=== PATIENT | female | born 1965 | race Caucasian/White ===

== ENCOUNTER → 2021-03-27 13:44 | Outpatient (BNVA) | payer OTHER, SELFPAY | PROVIDERS: Visit Provider Internal Medicine | DX: M23.91 Unspecified internal derangement of right knee (principal) | CPT/HCPCS: 73564; 99203 ==

== ENCOUNTER → 2021-04-01 11:01 | Outpatient (BNVA) | payer OTHER, SELFPAY | PROVIDERS: Visit Provider Internal Medicine | DX: M23.91 Unspecified internal derangement of right knee (principal) | CPT/HCPCS: 99213 ==

== ENCOUNTER 2021-04-03 08:24 | Outpatient (REF) | payer OTHER, SELFPAY ==
--- NOTE | ~2021-04-03 | XR_ITS ---
EXAMINATION: XR PELVIS CLINICAL INFORMATION: Pain and unspecified hip COMPARISON: 12/26/2015 TECHNIQUE: AP view of the pelvis. FINDINGS: No displaced fracture. Status post right total hip arthroplasty. There are moderate degenerative changes with cartilage space narrowing and hypertrophic changes in the left hip. XR/XR pelvis 1-2V IMPRESSION: 1. Status post right hip total arthroplasty. 2. Moderate degenerative changes in the left hip.
--- NOTE | ~2021-04-03 | XR_ITS ---
EXAMINATION: XR KNEE AP STANDING CLINICAL INFORMATION: Pain and unspecified knee COMPARISON: Right knee 03/27/2021 TECHNIQUE: AP bilateral standing view of the knees was obtained. FINDINGS: No displaced fracture. The cartilage spaces in both knees are fairly well-preserved. Mild bony spurring is present. Soft tissues unremarkable. XR/XR knee standing BI IMPRESSION: No displaced fracture.
== END 2021-04-03 08:25 | disposition home or self-care (01) ==
LOC: HO.HOSX 08:24
PROVIDERS: Visit Provider Orthopaedic Surgery
DX: M16.12 Unilateral primary osteoarthritis, left hip (principal); M25.552 Pain in left hip; M25.561 Pain in right knee
CPT/HCPCS: 72170; 73565; 99202

== ENCOUNTER → 2021-04-08 10:57 | Outpatient (BNVA) | payer OTHER, SELFPAY | PROVIDERS: Visit Provider Internal Medicine | DX: M23.91 Unspecified internal derangement of right knee (principal) | CPT/HCPCS: 99213 ==

== ENCOUNTER → 2021-04-11 15:05 | Outpatient (BNVA) | payer OTHER, SELFPAY | PROVIDERS: Visit Provider Internal Medicine | DX: M23.91 Unspecified internal derangement of right knee (principal) | CPT/HCPCS: 99213 ==

== ENCOUNTER → 2021-04-21 10:53 | Outpatient (BNVA) | payer OTHER, SELFPAY | PROVIDERS: Visit Provider Internal Medicine | DX: M23.91 Unspecified internal derangement of right knee (principal) | CPT/HCPCS: 99213 ==

== ENCOUNTER 2021-05-01 10:17 | Outpatient (REF) | payer OTHER, SELFPAY ==
--- NOTE | ~2021-05-01 | MR_ITS ---
EXAMINATION: MR KNEE WITHOUT CONTRAST, RIGHT CLINICAL INFORMATION: Twisted knee, pain persists. COMPARISON: X-rays of the knees March 2021. TECHNIQUE: MRI of the knee without contrast was performed using routine sequences on a high-field scanner. FINDINGS: MENISCI: Medial Meniscus: There is an avulsive-type tear at the posterior root insertion. Lateral Meniscus: Intact. LIGAMENTS: Cruciate: Intact. Collateral: Intact. EXTENSOR MECHANISM: Intact. ARTICULAR CARTILAGE/BONE: Patellofemoral Compartment: Normal. Medial Compartment: Normal. Lateral Compartment: Normal. JOINT FLUID AND BURSAE: There is a mild joint effusion and trace Almodovar's cyst. ADDITIONAL FINDINGS: Mild edema in the subcutaneous soft tissues. MR/MR knee RT wo con IMPRESSION: Avulsive-type tear at the medial meniscus posterior root insertion.
== END 2021-05-01 10:18 | disposition home or self-care (01) ==
LOC: HO.MRI 10:17
PROVIDERS: Visit Provider Internal Medicine
DX: M25.561 Pain in right knee (principal)
CPT/HCPCS: 73721

== ENCOUNTER 2021-05-01 16:00 | Outpatient (RCR) | payer OTHER, SELFPAY ==
--- NOTE | 2021-04-02 16:55 | MHC.PT.EP ---
[facility] [place] [facility] [place] [facility] [place] [facility] [address] Yonatan Joyce [address] [phone] F: [phone] F: [phone] F: [phone] F: [phone] Physical Therapy Plan of Care Date of Evaluation: Date of Surgery: Diagnosis: R knee sprain Assessment: 55 y/o F referred from [facility] to PT with R knee sprain. Sustained injury while at work while walking with a child [id number] when the child fell and pulled causing her R knee to twist 03/27/21. Currently limited with walking > 10min, ascending/descending stairs, and job duties (squat, up/down from floor, lifting). She feels that her knee is improving but she has also been resting it. Examination shows decreased knee AROM, decreased B LE strength, increased TTP R inferior patella pole, impaired squat mechanics, and impaired gait pattern. Recommend PT 2x/week for 4 weeks to address impairments, implement HEP, and optimize functional mobility. Frequency and Duration: The patient will be seen 2x/week for 4 weeks Short Term Goals: 2 weeks 1. I with hEP 2. Improve knee flexion to 116 3. Demonstrate no quad lag with SLR Panel Monitor Goals: 4 weeks 1. I with HEP and self management of sx 2. Pt will be able to ascend/descend stairs in step through pattern and pain < 3/10 3. Pt will be able to ambulate >30min with pain < 3/10 Treatment Plan: Modalities to reduce pain, spasms and effusion. Manual therapy to restore motion and function. Therapeutic exercise to improve strength and flexibility. Neuromuscular re-education for posture and balance. Therapeutic activities to return to functional activities of daily living. Electronically signed by: Shayna Barriga PT Please sign and return to therapist. Thank you for your referral.
--- NOTE | 2021-05-23 09:47 | MHC.PT.DC ---
[facility] [place] Office [place] Office [place] Office [address] Yonatan Joyce [address] [phone] F: [phone] F: [phone] F: [phone] F: [phone] Physical Therapy Discharge Report Diagnosis: R knee sprain Date of Surgery: Date of Evaluation: 04/02/21 Date of Discharge: 05/23/21 Treatments to Date: 5 Cancellations to Date: 0 No Shows to Date: 0 Discharge Status: Independent with HEP Patient Elected to Stop Discharge Summary: *Per last treatment note: Pt reports although she like the taping and some of the exercises are good she does not feel therapy has been helping and requests to be DC'd to HEP. She did go for MRI of her knee today and has yet to have a f/u. Therapy will keep chart open x 2 weeks in case MD strongly suggests continuing PT. Pt is scheduled for L THR next month which is also a consideration. Non painful HEP reviewed and TET reapplied today. Electronically signed by: Shayna Barriga PT Please sign and return to therapist. Thank you for your referral.
== END 2021-05-23 09:47 | disposition home or self-care (01) ==
LOC: HO.PTCHIC 16:00
PROVIDERS: Visit Provider Internal Medicine
DX: S83.91XD Sprain of unspecified site of right knee, subsequent encounter (principal)
CPT/HCPCS: 97110; 97140; 97161

== ENCOUNTER → 2021-05-05 10:34 | Outpatient (BNVA) | payer OTHER, SELFPAY | PROVIDERS: Visit Provider Internal Medicine | DX: M23.91 Unspecified internal derangement of right knee (principal) | CPT/HCPCS: 99213 ==

== ENCOUNTER → 2021-05-08 09:32 | Outpatient (BNVA) | payer OTHER, SELFPAY | PROVIDERS: Visit Provider Physician Assistant | DX: S83.241A Other tear of medial meniscus, current injury, right knee, initial encounter (principal); M17.11 Unilateral primary osteoarthritis, right knee | CPT/HCPCS: 20610; 99202; J1040 ==

== ENCOUNTER → 2021-05-19 10:59 | Outpatient (BNVA) | payer OTHER, SELFPAY | PROVIDERS: Visit Provider Internal Medicine | DX: M23.206 Derangement of unspecified meniscus due to old tear or injury, right knee (principal) | CPT/HCPCS: 99213 ==

== ENCOUNTER → 2021-05-28 09:27 | Outpatient (BNVA) | payer OTHER, SELFPAY | PROVIDERS: PCP Nurse Practitioner Family; Visit Provider Orthopaedic Surgery ==

== ENCOUNTER → 2021-06-26 13:26 | Outpatient (BNVA) | payer OTHER, SELFPAY | PROVIDERS: Visit Provider Physician Assistant ==

== ENCOUNTER 2021-07-02 09:59 | Inpatient (IN) | payer OTHER, SELFPAY ==
--- NOTE | 2021-06-26 10:33 | HO.ANESPROP2 ---
Documented by User: Selin Li NP 06/30/21 08:09 HPI - Anesthesia Eval Consult details Narrative: 55yo F for Left Hip Total Replacement PCP cleared. BP up at PAT. Was within acceptable range at PCP clearance appointment. Will check at home and bring data DOS. PMFSH Active Problems Active Problems: All Active Problems (Updated 06/18/21 @ 10:47 by Kelsi Rodriguez RN) Internal derangement of right knee (Acute ~03/27/21) Tear of medial meniscus of right knee (Acute) Patellofemoral arthritis of right knee (Acute) Past Medical History Medical History Anemia Anxiety disorder Arthritis COVID-19 vaccine series completed History of torn meniscus of right knee HTN (hypertension) Family History Family history of problems with anesthesia: No Surgical History Surgical History History of bladder suspension procedure History of endometrial ablation History of tonsillectomy History of total right hip arthroplasty Hx of section Hx of cholecystectomy History of Problems with Anesthesia: No Social History Social History Are you a primary career and guidance counselor to a significant other at home: No Do you presently have visiting nurse or other home services: No Alcohol intake: never Patient Tobacco Use Status: Former Tobacco user Quit Date: ~ 30 yrs ago Tobacco use type: Cigarette Second Hand Smoke Exposure: No Use of substances other than those prescribed or required for medical reasons: No Have you been hit, kicked, punched, or otherwise hurt by someone within the past year? If so, by whom?: No Are you DNR?: No Advance Directives: No Advance Directives Information Provided: Yes Advance Directives on File: No Recently lost weight without trying: No Eating poorly because of decreased appetite: No Nutrition Risks: No Nutritional Risk Patient : No Current occupational status: employed Current occupation: teacher, right handed Meds Allergies Allergy/AdvReac Type Severity Reaction Status Date / Time No Known Allergies Allergy Verified 06/26/21 14:00 [No Known Allergies*] Home Medications Medication Instructions Recorded Confirmed Last Taken Type fluoxetine 40 mg capsule 40 mg PO DAILY 04/03/21 06/18/21 07/02/21 08:45 History acetaminophen 650 mg 1,300 mg PO Q8H 06/26/21 07/02/21 07/02/21 08:45 History tablet,extended release (Tylenol 650 mg Arthritis Pain) Exam Exam Date and Time: June 26, 2021 1033 Height,Weight and Vital Signs: Vital Signs Pulse Rate 83 06/26/21 14:05 Blood Pressure 170/102 H 06/26/21 14:05 Pulse Oximetry 97 06/26/21 14:05 Pulse Rate 83 06/26/21 14:05 Blood Pressure 170/102 H 06/26/21 14:05 Pulse Oximetry 97 06/26/21 14:05 Pertinent Lab Results Pertinent Lab Results: CBC and BMP wnl at outside facility Lab Results 06/26/21 06/26/21 Range/Units 15:02 Unknown Nasal Screen MRSA (PCR) NEGATIVE (Negative) Nasal S. aureus Screen POSITIVE A (Negative) Nasal MRSA/S.aureus Interp SEE NOTE Blood Type AB Negative Antibody Screen NEGATIVE Narrative Narrative: EKG 06/2021 NSR, LAD, Incomplete RBBB, poor R wave progression, No evidence of ischemia Airway Mallampati Class: I TM Dist: >3cm Neck ROM: Full Loose/Missing/Broken Teeth: Yes (Molar RU broken) Heart: RRR Lungs: CTAB Assessment and Plan Final Anesthetic Review Family History of Problems with Anesthesia: No History of Problems with Anesthesia: No Documented by User: Nichole Luu MD 07/02/21 10:35 [facility] Past Medical History Medical History Anemia Anxiety disorder Arthritis COVID-19 vaccine series completed History of torn meniscus of right knee HTN (hypertension) Surgical History Surgical History History of bladder suspension procedure History of endometrial ablation History of tonsillectomy History of total right hip arthroplasty Hx of section Hx of cholecystectomy Social History Social History Are you a primary career and guidance counselor to a significant other at home: No Do you presently have visiting nurse or other home services: No Alcohol intake: never Patient Tobacco Use Status: Former Tobacco user Quit Date: ~ 30 yrs ago Tobacco use type: Cigarette Second Hand Smoke Exposure: No Use of substances other than those prescribed or required for medical reasons: No Have you been hit, kicked, punched, or otherwise hurt by someone within the past year? If so, by whom?: No Are you DNR?: No Advance Directives: No Advance Directives Information Provided: Yes Advance Directives on File: No Recently lost weight without trying: No Eating poorly because of decreased appetite: No Nutrition Risks: No Nutritional Risk Patient : No Current occupational status: employed Current occupation: teacher, right handed Meds Allergies Allergy/AdvReac Type Severity Reaction Status Date / Time No Known Allergies Allergy Verified 06/26/21 14:00 [No Known Allergies*] Home Medications Medication Instructions Recorded Confirmed Last Taken Type fluoxetine 40 mg capsule 40 mg PO DAILY 04/03/21 06/18/21 07/02/21 08:45 History acetaminophen 650 mg 1,300 mg PO Q8H 06/26/21 07/02/21 07/02/21 08:45 History tablet,extended release (Tylenol 650 mg Arthritis Pain) Assessment and Plan Assessment Anesthesia Assessment: Anesthesia Plan Discussed and Chart Reviewed Final Anesthetic Review NPO: Yes ASA Class: III Final Preanesthetic Review: Meds/Allgs Chart Reviewed, Consent Obtained/Reviewed and Anes Risks/Benef Reviewed Patient Risk: Intermediate Procedure Risk: Intermediate Anesthetic Plan Anesthetic Plan: GA Disposition: Standard PACU
[2021-06-26 14:05] VITALS: BP 170/102; PULSE 83; O2SAT 97; BMI 41.8
[2021-06-27 09:03] LABS: MRSA Nasal PCR NEGATIVE (Negative); SA Nasal PCR POSITIVE (Negative)
[2021-07-02] VITALS (16 sets, daily range): BP systolic 120–180; BP diastolic 62–97; PULSE 79–93; RESP 8–18; TEMP 36.3–36.9; O2SAT 91–100
--- NOTE | ~2021-07-02 | XR_ITS ---
EXAMINATION: XR PELVIS CLINICAL INFORMATION: Post left hip replacement COMPARISON: Previous x-ray March 2021 TECHNIQUE: AP view of the pelvis. FINDINGS: There is a new left hip replacement in satisfactory position. No fracture or dislocation is seen. There is a right hip replacement in satisfactory position. There are postoperative changes to the soft tissues. XR/XR pelvis 1-2V IMPRESSION: Satisfactory appearance of left hip replacement.
[2021-07-02 10:08] LABS: COVID-19 Test Negative (Negative)
[2021-07-02] MEDS: oxyCODONE HCl ER 10 MG TAB.ER.12H PO ×2 (10:12→20:36)
[2021-07-02] MEDS: Lactated Ringers 1,000 ML 100 ML IVCONT (10:25)
--- NOTE | 2021-07-02 10:48 | MHC.SHP ---
Pre-Procedural Eval Section A Date of Service: 07/02/21 The patient is an INPATIENT: No Changes since office visit: Yes Patient answered all questions; No Cold of Flu in the past 2 weeks, No New Medical Problems and No Changes in Medication The History & Physical has been completed within 30 days and I have reviewed it.: Yes Section B Chief Complaint: Osteoarthritis Left Hip Allergies: Allergies Allergy/AdvReac Type Severity Reaction Status Date / Time No Known Allergies Allergy Verified 06/26/21 14:00 [No Known Allergies*] Plan I have reviewed the history and physical and performed a pertinent physical examination on my patient. No changes have occurred unless specified.
--- NOTE | 2021-07-02 13:26 | P.BOP_ITS ---
Brief Operative Note Date of Service: 07/02/21 Pre-op diagnosis: left hip OA Post-op diagnosis: same Procedure: Left RODO Implants: [place] trident2 # 50; accolad 2 #3 132deg with +4 32 ceramic and 10 deg post lip liner Surgeon: Randal Clark MD Anesthesia: GETA and local Was an Vice President Of Business Development used for this Procedure?: Yes Vice President Of Business Development: Alyssa Muñoz Estimated blood loss (mL): 200 IV fluids (mL): 1,100 Pathology: other Condition: stable Disposition: PACU
[2021-07-02] MEDS: oxyCODONE HCl Immed Release 5 MG TABLET PO ×3 (14:20→23:36)
[2021-07-02] MEDS: fentaNYL citrate/PF 100 MCG/2 ML VIAL 25 MCG IVPUSH (14:28)
[2021-07-02] MEDS: Dextrose 5 % and 0.45 % NaCl 1,000 ML 80 ML IVCONT (18:29)
[2021-07-02] MEDS: 0.9 % Sodium Chloride Flush 3 ML SYRINGE IVFLUSH (18:29)
--- NOTE | 2021-07-02 19:07 | PC.NURSE ---
Patient spontaneously voided 350mL into bedside commode at 1730
[2021-07-02] MEDS: Docusate Sodium 100 MG CAPSULE PO (20:36)
[2021-07-02] MEDS: Celecoxib 200 MG CAPSULE PO (20:36)
[2021-07-02] MEDS: HYDROmorphone HCl 0.5 MG/0.5 ML SYRINGE 0.25 MG IVPUSH (22:09)
[2021-07-02] MEDS: Acetaminophen 325 MG TABLET 650 MG PO (22:09)
[2021-07-03] VITALS (9 sets, daily range): BP systolic 111–155; BP diastolic 52–81; PULSE 95–111; RESP 16–18; TEMP 36.1–36.9; O2SAT 91–98
[2021-07-03] MEDS: HYDROmorphone HCl 0.5 MG/0.5 ML SYRINGE 0.25 MG IVPUSH (01:59)
[2021-07-03] MEDS: oxyCODONE HCl Immed Release 5 MG TABLET PO ×4 (03:31→18:34)
[2021-07-03] MEDS: Acetaminophen 325 MG TABLET 650 MG PO ×3 (04:03→21:26)
[2021-07-03] MEDS: Dextrose 5 % and 0.45 % NaCl 1,000 ML 80 ML IVCONT (05:59)
[2021-07-03 06:11] LABS: MANUAL DIFF FLAG NO
[2021-07-03 06:25] LABS: Basophils Percent Auto 0.1 % (0-2); Hematocrit 27.4 % (37-47); Hemoglobin 9.1 g/dl (12.0-16.0); Imm Gran Abs Auto 0.03 X10*3/uL (0.00-0.03); Imm Gran Pct Auto 0.3 % (0.0-0.4); Lymphocytes Absolute Auto 1.2 X10*3/uL (1.2-4.9); Lymphocytes Percent Auto 12.2 % (20-40); Mean Corpuscular HGB Conc 33.2 g/dl (31.0-35.0); Mean Corpuscular Hemoglobin 27.7 pg (27.0-33.0); Mean Corpuscular Volume 83.5 fL (80-98); Mean Platelet Volume 9.7 fL (9.4-12.3); Monocytes Absolute Auto 1.1 X10*3/uL (0.1-1.2); Monocytes Percent Auto 11.2 % (2-11); Neutrophils Absolute Auto 7.7 X10*3/uL (2.0-8.3); Neutrophils Percent Auto 76.2 % (45-73); Platelet Count 225 X10*3/uL (160-400); Red Blood Count 3.28 X10*6/uL (4.20-5.50); Red Cell Distribution Width 13.6 % (11.0-16.0); White Blood Count 10.1 X10*3/uL (4.8-10.8)
[2021-07-03 06:41] LABS: Anion Gap 10 (12-20); Blood Urea Nitrogen 8 mg/dL (9-16); Calcium 7.9 mg/dL (8.4-10.2); Carbon Dioxide 28 mmol/L (22-29); Chloride 100 mmol/L (96-108); Creatinine Clr Calc Pharmacy 119.2; Estimated Glomerular Filt Rate > 60; Glucose Fasting 162 mg/dL (60-99); Potassium 4.1 mmol/L (3.3-5.1); Sodium 134 mmol/L (135-145)
--- NOTE | 2021-07-03 07:49 | PM.PNORT ---
Subjective Subjective Date of Service: 07/03/21 Interval history: POD1 s/p left RODO with Dr. Clark. Patient is resting comfortably in bed. No overnight events. Pain is well managed. No additional complaints. Physical Exam Vital Signs: Vital Signs: Last Vital Signs Temp 98.5 F 07/03/21 07:36 Pulse 111 H 07/03/21 07:36 Resp 18 07/03/21 03:11 BP 131/65 07/03/21 07:36 Pulse Ox 98 07/03/21 07:36 Body Mass Index 41.8 Const: General: cooperative, healthy appearing and no acute distress Resp: Effort & Inspection: normal respiratory effort and able to speak in complete sentences Cardio: Rate: regular rate Peripheral pulses: Peripheral pulses 2+ throughout GI: Palpation (GI): Soft to palpation Skin: Lesions: no lesions Rashes: no rashes Extrem: Other: left hip aquacel is clean, dry, and intact. No ecchymosis, redness, or drainage. NVI. Procedures Date of Service Date of Service: 07/03/21 Progress Note: A&P Assessment and plan (1) Status post total hip replacement, left: Status: Acute Assessment and Plan: Continue pain mgmnt Begin ASA for dvt ppx begin PT for LTHA Dispo planning-Pending PT eval, pain mgmnt Fall Risk Details Current Medications: Current Medications Generic Name Dose Route Start Last Admin Trade Name Freq PRN Reason Stop Dose Admin Acetaminophen 650 mg 07/02/21 17:14 07/03/21 04:03 Acetaminophen 325 Mg Tablet PO 650 mg Q6H PRN Administration Pain, Mild (Pain Scale 1-3) Celecoxib 200 mg 07/02/21 21:00 07/02/21 20:36 Celecoxib 200 Mg Capsule PO 200 mg BID BETINA Administration Docusate Sodium 100 mg 07/02/21 21:00 07/02/21 20:36 Docusate Sodium 100 Mg Capsule PO 100 mg BID BETINA Administration Hydromorphone HCl 0.25 mg 07/02/21 17:14 07/03/21 01:59 Hydromorphone Hcl 0.5 Mg/0.5 Ml Syringe IVPUSH 0.25 mg Q4H PRN Administration Pain, Severe (Pain Scale 7-10) Protocol Dextrose/Sodium Chloride 1,000 mls @ 80 mls/hr 07/02/21 17:14 07/03/21 05:59 D51/2ns IVCONT 80 mls/hr .[id number] BETINA Administration Oxycodone HCl 5 mg 07/02/21 17:14 07/03/21 03:31 Oxycodone Hcl Immed Release 5 Mg Tablet PO 5 mg Q4H PRN Administration Pain, Moderate (Pain Scale 4-6 Oxycodone HCl 10 mg 07/02/21 21:00 07/02/21 20:36 Oxycodone Hcl Er 10 Mg Tab.Er.12h PO 10 mg BID BETINA Administration Sodium Chloride 3 ml 07/02/21 17:14 07/03/21 07:12 0.9 % Sodium Chloride Flush 3 Ml Syringe IVFLUSH Not Given QSHIFT BETINA Time Spent With Patient Time: Total time spent is greater than 50% in coordination of care (as documented) at patient's floor/unit and/or counseling patient: Time with patient: less than 15 minutes Quality Stroke Does the patient have a stroke diagnosis?: No VTE Prior VTE?: No VTE Risk Level:: Surgical - high VTE Device Contraindication: N/A - Device Ordered VTE Drug Contraindication: N/A - Med Ordered
--- NOTE | 2021-07-03 08:48 | HO.POSTANES ---
Post Anesthesia Evaluation Post Anesthesia Evaluation Vital Signs: Vital Signs Temp Pulse Resp BP Pulse Ox 07/03/21 07:48 111 H 131/65 98 07/03/21 07:36 98.5 F 111 H 131/65 98 07/03/21 03:11 98.4 F 100 18 155/67 H 96 07/03/21 00:00 98.2 F 95 17 153/81 H 98 Anesthesia: General Endotracheal-GETA Mental Status: Awake Pain Control: Satisfactory Nausea/Vomiting: Mild Hydration: Adequate Anesthesia-Related Issues: No Anes. Related Issues
[2021-07-03] MEDS: Celecoxib 200 MG CAPSULE PO ×2 (08:57→21:27)
[2021-07-03] MEDS: Docusate Sodium 100 MG CAPSULE PO ×2 (08:57→21:26)
[2021-07-03] MEDS: oxyCODONE HCl ER 10 MG TAB.ER.12H PO ×2 (08:57→21:27)
--- NOTE | 2021-07-03 09:13 | P.CONHOSP_ITS ---
History of Present Illness Data of Consult Service Date: 07/03/21 Primary Care Provider: Belinda Physician HPI Reason for consult: medical managment 55 year old female with history of anxiety, hypertriglyeridemia, Major depression, morbid obesity, OA of hip s/p right replacement by Dr. Clark 5 years ago and now has undergone left hip replacment and is POD 1, she relates that she seem more uncomfortable this this time than 5 years ago, she received narcan post op d/t respiratory suppresion and this seem transient. No other omplaint at this time. Review of Systems Review of Systems: Gen: no fever Resp: no sob, no cough CV: no chest, no PEREZ, no leg edema GI: No n/v, no abd pain Neuro: No confusion MSK: pain in the operated hip Yes all other systems are reviewed and are negative [facility] Medical History Anemia Anxiety disorder Arthritis COVID-19 vaccine series completed History of torn meniscus of right knee HTN (hypertension) Hypertriglyceridemia Major depression Morbid obesity Surgical History History of bladder suspension procedure History of endometrial ablation History of tonsillectomy History of total right hip arthroplasty Hx of section Hx of cholecystectomy Social History Are you a primary child care development specialist to a significant other at home: No Do you presently have visiting nurse or other home services: No Alcohol intake: never Patient Tobacco Use Status: Former Tobacco user Quit Date: ~ 30 yrs ago Tobacco use type: Cigarette Second Hand Smoke Exposure: No Use of substances other than those prescribed or required for medical reasons: No Currently Displaying Signs/Symptoms of Drug Intoxication Withdrawal: No Have you been hit, kicked, punched, or otherwise hurt by someone within the past year? If so, by whom?: No Are you DNR?: No Advance Directives: No Advance Directives Information Provided: Yes Advance Directives on File: No Do you have thoughts of harming others: None Do you have a plan to hurt others: No Plan Recently lost weight without trying: No Eating poorly because of decreased appetite: No Nutrition Risks: No Nutritional Risk Patient : No Current occupational status: employed Current occupation: teacher, right handed Meds Allergies Allergy/AdvReac Type Severity Reaction Status Date / Time No Known Allergies Allergy Verified 06/26/21 14:00 [No Known Allergies*] Active Medications: Current Medications Generic Name Dose Route Start Last Admin Trade Name Freq PRN Reason Stop Dose Admin Acetaminophen 650 mg 07/02/21 17:14 07/03/21 04:03 Acetaminophen 325 Mg Tablet PO 650 mg Q6H PRN Administration Pain, Mild (Pain Scale 1-3) Celecoxib 200 mg 07/02/21 21:00 07/03/21 08:57 Celecoxib 200 Mg Capsule PO 200 mg BID BETINA Administration Docusate Sodium 100 mg 07/02/21 21:00 07/03/21 08:57 Docusate Sodium 100 Mg Capsule PO 100 mg BID BETINA Administration Hydromorphone HCl 0.25 mg 07/02/21 17:14 07/03/21 01:59 Hydromorphone Hcl 0.5 Mg/0.5 Ml Syringe IVPUSH 0.25 mg Q4H PRN Administration Pain, Severe (Pain Scale 7-10) Protocol Dextrose/Sodium Chloride 1,000 mls @ 80 mls/hr 07/02/21 17:14 07/03/21 05:59 D51/2ns IVCONT 80 mls/hr .[id number] BETINA Administration Oxycodone HCl 5 mg 07/02/21 17:14 07/03/21 08:57 Oxycodone Hcl Immed Release 5 Mg Tablet PO 5 mg Q4H PRN Administration Pain, Moderate (Pain Scale 4-6 Oxycodone HCl 10 mg 07/02/21 21:00 07/03/21 08:57 Oxycodone Hcl Er 10 Mg Tab.Er.12h PO 10 mg BID BETINA Administration Sodium Chloride 3 ml 07/02/21 17:14 07/03/21 07:12 0.9 % Sodium Chloride Flush 3 Ml Syringe IVFLUSH Not Given QSHIFT [facility] Home Medications Medication Instructions Recorded Confirmed Last Taken Type fluoxetine 40 mg capsule 40 mg PO DAILY 04/03/21 06/18/21 07/02/21 08:45 History acetaminophen 650 mg 1,300 mg PO Q8H 06/26/21 07/02/21 07/02/21 08:45 History tablet,extended release (Tylenol 650 mg Arthritis Pain) Physical Exam Vital Signs and Narrative: Vital Signs: Last Vital Signs Temp 98.5 F 07/03/21 07:36 Pulse 111 H 07/03/21 07:48 Resp 18 07/03/21 03:11 BP 131/65 07/03/21 07:48 Pulse Ox 98 07/03/21 07:48 Body Mass Index 41.8 Gen: alert, no acute distress HEENT: NCAT, EOMI, PERRL, conj noninj, sclerae anicteric, Neck: supple, no LAD Chest: CTAB no w/r/r Heart: RRR, no m/r/g Abd: soft, nt, NABS, no HM/SM or mass. Ext: NT, no edema, Skin: no rash Neuro: A&O. No focal findings.?gait antalgic to affected side ? Psych: Affect full and appropriate. Results Labs CBC and Chem 7: 07/03/21 05:26 07/03/21 05:26 Labs: Laboratory Results - last 24 hr 07/02/21 07/03/21 07/03/21 09:40 05:26 05:26 MCV 83.5 MCH 27.7 MCHC 33.2 RDW 13.6 Plt Count 225 MPV 9.7 Immature Gran % (Auto) 0.3 Neut % (Auto) 76.2 H Lymph % (Auto) 12.2 L [place] % (Auto) 11.2 H Eos % (Auto) 0.0 Baso % (Auto) 0.1 Lymph # (Auto) 1.2 [place] # (Auto) 1.1 Eos # (Auto) 0.0 Baso # (Auto) 0.0 Abs Immat Gran (auto) 0.03 Absolute Neuts (auto) 7.7 Absolute Nucleated RBC 0.000 Nucleated RBC % (auto) 0.0 Anion Gap 10 L Estim Creat Clear Calc 119.2 Estimated GFR > 60 Fasting Glucose 162 H Calcium 7.9 L COVID-19 (ISIAH) Negative COVID-19 Clin Com See Note Imaging Radiologist's Impressions: Impressions Pelvis X-Ray 07/02/21 09:59 IMPRESSION: Satisfactory appearance of left hip replacement. Assessment and Plan (1) Anemia: Status: Acute 55/F with OA s/p left RODO 1. s/p RODO, managment per ortho 2.?Morbid obesity?actively working on weight loss w some difficulty w this, planning on starting weight watchers again, will have limitations in light of surgery ? 3.?Anxiety?Mood stable on prozac 4.?Major depression, recurrent?Mood stable on prozac 5.?Hypertriglyceridemia, monitor diet 6. Anemia, Hgb 9, 12 on June 16. ? ?
[2021-07-03] MEDS: Aspirin 325 MG TABLET PO ×2 (11:47→23:50)
--- NOTE | 2021-07-03 13:08 | MHC.CM.PN ---
EMR REVIEWED, PT ADMITTED S/P LEFT TOTAL HIP, CM MET W/PT WHO IS A&OX4, REPORTS SHE LIVES W/ AND CHILDREN, PT HAS WALKER AT HOME AND NO HOME SERVICES, PT WOULD LIKE TO D/C HOME W/SERVICES RATHER THAN STR, REFERRAL TO [facility] WILL BE MADE W/REQUEST FOR [facility] D/T HAVING HER IN PAST AND HER BEING VERY COMFORTABLE W/PT'S DOGS, PT AWARE WE CANNOT GUARANTEE HOWEVER WILL REQUEST, PT CONFIRMED HER PCP IS CHANDLER IZQUIERDO. PT COMPLETED HCP W/PT WHO NAMED HER DELVIS DEMARCO [phone] HER AGENT, NO ALTERNATE CHOSEN AT THIS TIME. D/C PLAN: HOME W/PT, FAMILY FOR TRANSPORT
[2021-07-04] VITALS (7 sets, daily range): BP systolic 109–136; BP diastolic 51–68; PULSE 90–106; RESP 15–20; TEMP 36.1–36.9; O2SAT 94–97
[2021-07-04] MEDS: Dextrose 5 % and 0.45 % NaCl 1,000 ML 800 ML IVCONT (02:54)
[2021-07-04] MEDS: HYDROmorphone HCl 0.5 MG/0.5 ML SYRINGE 0.25 MG IVPUSH (03:50)
[2021-07-04 06:16] LABS: MANUAL DIFF FLAG NO
[2021-07-04 06:35] LABS: Basophils Percent Auto 0.1 % (0-2); Eosinophils Absolute Auto 0.1 X10*3/uL (0.0-0.4); Eosinophils Percent Auto 0.8 % (0-4); Hematocrit 25.1 % (37-47); Hemoglobin 8.1 g/dl (12.0-16.0); Imm Gran Abs Auto 0.04 X10*3/uL (0.00-0.03); Imm Gran Pct Auto 0.5 % (0.0-0.4); Lymphocytes Absolute Auto 1.4 X10*3/uL (1.2-4.9); Lymphocytes Percent Auto 15.7 % (20-40); Mean Corpuscular HGB Conc 32.3 g/dl (31.0-35.0); Mean Corpuscular Volume 83.7 fL (80-98); Mean Platelet Volume 9.4 fL (9.4-12.3); Monocytes Absolute Auto 0.8 X10*3/uL (0.1-1.2); Monocytes Percent Auto 9.1 % (2-11); Neutrophils Absolute Auto 6.5 X10*3/uL (2.0-8.3); Neutrophils Percent Auto 73.8 % (45-73); Platelet Count 172 X10*3/uL (160-400); Red Cell Distribution Width 13.4 % (11.0-16.0); White Blood Count 8.8 X10*3/uL (4.8-10.8)
[2021-07-04] MEDS: oxyCODONE HCl ER 10 MG TAB.ER.12H PO (08:02)
[2021-07-04] MEDS: oxyCODONE HCl Immed Release 5 MG TABLET PO ×2 (08:02→12:15)
[2021-07-04] MEDS: Docusate Sodium 100 MG CAPSULE PO (08:03)
[2021-07-04] MEDS: Celecoxib 200 MG CAPSULE PO (08:03)
[2021-07-04] MEDS: Acetaminophen 325 MG TABLET 650 MG PO ×2 (08:03→12:15)
[2021-07-04] MEDS: Aspirin 325 MG TABLET PO (08:04)
--- NOTE | 2021-07-04 08:26 | P.PNOP_ITS ---
Subjective Subjective Date of Service: 07/04/21 Interval history: POD2 left total hip arthroplasty with Dr. Clark. Patient is resting in the chair. Pain is managed. Feeling overall general malaise. Physical Exam Vital Signs: Vital Signs: Last Vital Signs Temp 98.5 F 07/04/21 07:58 Pulse 106 H 07/04/21 07:58 Resp 19 07/04/21 07:58 BP 136/65 07/04/21 07:58 Pulse Ox 97 07/04/21 07:58 Body Mass Index 41.8 Const: General: cooperative, healthy appearing and no acute distress Resp: Effort & Inspection: normal respiratory effort and able to speak in complete sentences Cardio: Rate: regular rate Peripheral pulses: Peripheral pulses 2+ th roughout GI: Palpation (GI): Soft to palpation Skin: Lesions: no lesions Rashes: no rashes Extrem: Other: Left hip no ecchymosis, redness or drainage. Aquacel dressing is clean dry and intact. Patient is able to stand. Sensation intact. Pedal pulse intact. Procedures Date of Service Date of Service: 07/04/21 Progress Note: A&P Assessment and plan (1) Status post total hip replacement, left: Status: Acute Assessment and Plan: Continue pain mgmnt Continue ASA for dvt ppx Contniue PT for RTHA H/H: 7.1.- 1 unit PRBC's ordered Dispo planning-PTl, pain mgmnt, transfusion Fall Risk Details Current Medications: Current Medications Generic Name Dose Route Start Last Admin Trade Name Freq PRN Reason Stop Dose Admin Acetaminophen 650 mg 07/02/21 17:14 07/04/21 08:03 Acetaminophen 325 Mg Tablet PO 650 mg Q6H PRN Administration Pain, Mild (Pain Scale 1-3) Aspirin 325 mg 07/03/21 11:00 07/04/21 08:04 Aspirin 325 Mg Tablet PO 325 mg BID@1100,2300 BETINA Administration Celecoxib 200 mg 07/02/21 21:00 07/04/21 08:03 Celecoxib 200 Mg Capsule PO 200 mg BID BETINA Administration Docusate Sodium 100 mg 07/02/21 21:00 07/04/21 08:03 Docusate Sodium 100 Mg Capsule PO 100 mg BID BETINA Administration Hydromorphone HCl 0.25 mg 07/02/21 17:14 07/04/21 03:50 Hydromorphone Hcl 0.5 Mg/0.5 Ml Syringe IVPUSH 0.25 mg Q4H PRN Administration Pain, Severe (Pain Scale 7-10) Protocol Dextrose/Sodium Chloride 1,000 mls @ 80 mls/hr 07/02/21 17:14 07/04/21 02:54 D51/2ns IVCONT 800 mls/hr .[id number] BETINA Administration Oxycodone HCl 5 mg 07/02/21 17:14 07/04/21 08:02 Oxycodone Hcl Immed Release 5 Mg Tablet PO 5 mg Q4H PRN Administration Pain, Moderate (Pain Scale 4-6 Oxycodone HCl 10 mg 07/02/21 21:00 07/04/21 08:02 Oxycodone Hcl Er 10 Mg Tab.Er.12h PO 10 mg BID BETINA Administration Sodium Chloride 3 ml 07/02/21 17:14 07/04/21 08:02 0.9 % Sodium Chloride Flush 3 Ml Syringe IVFLUSH Not Given QSHIFT BETINA Time Spent With Patient Time: Total time spent is greater than 50% in coordination of care (as documented) at patient's floor/unit and/or counseling patient: Time with patient: less than 15 minutes Quality Stroke Does the patient have a stroke diagnosis?: No VTE Prior VTE?: No VTE Risk Level:: Surgical - high VTE Device Contraindication: N/A - Device Ordered VTE Drug Contraindication: N/A - Med Ordered
--- NOTE | 2021-07-04 09:45 | P.DS_ITS ---
DS: Providers Provider Date of Service: 07/04/21 Date of admission: 07/02/21 09:59 Primary care physician: None Physician Consults: 07/02/21 17:14 Consult to Medicine Routine Consulting Provider: Hospitalist Reason for consultation: medical management routine DS: Diagnosis Discharge Diagnosis (1) Status post total hip replacement, left: Status: Acute DS: Medications Discharge Medications Home Medications: Home Medications Medication Instructions Recorded Confirmed fluoxetine 40 mg capsule 40 mg PO DAILY 04/03/21 06/18/21 Previous Rx's Medication Instructions Recorded acetaminophen 325 mg tablet 650 mg PO Q6H PRN 30 Days #240 tab 07/03/21 aspirin 325 mg tablet 325 mg PO BID@1100,2300 42 Days 07/03/21 #84 tab celecoxib 200 mg capsule 200 mg PO BID 30 Days #60 cap 07/03/21 docusate sodium 100 mg capsule 100 mg PO BID 30 Days #60 cap 07/03/21 oxycodone 5 mg tablet 5 mg PO Q4H PRN 7 Days #42 tab 07/03/21 DS: Summary Hospital Course Hospital Course: Patient presented to the office with ongoing chronic left hip pain. She tried and failed all conservative treatment and continued to have difficulties with ambulation and ADLs. Therefore, she has consented to move forward with a left total hip arthroplasty. The patient underwent a successful left total hip arthroplasty, they were transferred to PACU and then to the floor to recover. During their stay, their vitals were stable, afebrile at 97.6. H/H 7.1/25.1 therefore the patient was transfused with 1 unit of PRBC's on POD2. POD 1 they were started on Aspirin 325mg po bid for DVT ppx, they also received Physical Therapy services twice a day. Prior to discharge, their dressing was changed, incision clean dry and intact, new Aquacel dressing applied and the plan was to be discharged home with VNA services. Time Spent with Patient Time attestation: Total time spent providing and/or coordinating discharge services: Discharge coordination time: Less than 30 minutes Quality: Stroke Does the patient have a stroke diagnosis?: No Physical Exam Vital Signs: Vital Signs: Last Vital Signs Temp 98.5 F 07/04/21 07:58 Pulse 106 H 07/04/21 09:06 Resp 19 07/04/21 07:58 BP 136/65 07/04/21 09:06 Pulse Ox 97 07/04/21 09:06 Body Mass Index 41.8 Const: General: cooperative, healthy appearing and no acute distress Resp: Effort & Inspection: normal respiratory effort and able to speak in complete sentences Cardio: Rate: regular rate Peripheral pulses: Peripheral pulses 2+ throughout GI: Palpation (GI): Soft to palpation Skin: Lesions: no lesions Rashes: no rashes Extrem: Other: Left hip no ecchymosis, redness or edema. Aquacel dressing is clean dry and intact. Patient is able to stand under her own power. Sensation is intact. Pedal pulse intact. DS: Data Data Completed and Pending Pending studies at discharge: Pending at discharge 07/02/21 12:41 Surgical [PTH] Routine Labs on day of discharge: Laboratory Results - last 24 hr 06/26/21 07/04/21 07/04/21 15:02 05:48 08:17 WBC 8.8 RBC 3.00 L Hgb 8.1 L Hct 25.1 L MCV 83.7 MCH 27.0 MCHC 32.3 RDW 13.4 Plt Count 172 MPV 9.4 Immature Gran % (Auto) 0.5 H Neut % (Auto) 73.8 H Lymph % (Auto) 15.7 L Morrison % (Auto) 9.1 Eos % (Auto) 0.8 Baso % (Auto) 0.1 Lymph # (Auto) 1.4 Morrison # (Auto) 0.8 Eos # (Auto) 0.1 Baso # (Auto) 0.0 Abs Immat Gran (auto) 0.04 H Absolute Neuts (auto) 6.5 Absolute Nucleated RBC 0.000 Nucleated RBC % (auto) 0.0 Blood Type AB Negative Antibody Screen NEGATIVE Crossmatch See Detail See Detail Discharge Plan Discharge Patient Disposition: Home Health Service Discharge Diagnosis: s/p left RODO Referrals: Gloria Hoyt PA-C [Physician Visitor Services Specialist] - 2 Weeks (07/17/21 at 1:30pm) Discharge Medications: New acetaminophen 325 mg Tablet 650 mg PO Q6H PRN (Reason: Pain, Mild (Pain Scale 1-3)) 30 Days Qty: 240 RF: 0 celecoxib 200 mg Capsule 200 mg PO BID 30 Days Qty: 60 RF: 0 aspirin 325 mg Tablet 325 mg PO BID@1100,2300 42 Days Qty: 84 RF: 0 docusate sodium 100 mg Capsule 100 mg PO BID 30 Days Qty: 60 RF: 0 oxycodone 5 mg Tablet 5 mg PO Q4H PRN (Reason: Pain, Moderate (Pain Scale 4-6) 7 Days Qty: 42 RF: 0 Continued fluoxetine 40 mg capsule 40 mg PO DAILY RF: 0 Discontinued acetaminophen [Tylenol Arthritis Pain] 650 mg Tablet Extended Release 1,300 mg PO Q8H RF: 0 Discharge Orders: Discharge Order (Routine); Ordered 07/04/21 Ordered By: Alyssa Muñoz Diet: regular diet Activity on Discharge: Use cane or walker Stand Alone Forms: Patient Portal Discharge page Care Plan Goals: restore fxn to left hip Health Concerns: none Plan of Treatment: Physical Therapy for total hip arthroplasty: posterior precautions, gait training, ROM, strength Limit stair climbing No showering, no tub bath-keep dressing clean, dry and intact No driving x6 weeks 6Continue ASA twice a day x 4 weeks Follow up with [facility] in 2 weeks Assessment: stable for d/c
--- NOTE | 2021-07-04 10:15 | MHC.CM.PN ---
PT WILL D/C HOME AFTER BLOOD TRANSFUSION W/[facility] FOR HOME PT, PT'S FOR TRANSPORT.
--- NOTE | 2021-07-04 13:22 | W.MHC.F2F ---
Service Date Service Date: 07/04/21 Reasons for Services Reason for physical therapy: home safety and mobility, therapeutic exercises, restore joint function, gait/transfer training and ADL training Reason for occupational therapy: home safety and mobility, therapeutic exercises, restore joint function, gait/transfer training and ADL training Homebound: Leaving the home is medically contraindicated at this time without the asist of a device and/or another person due th the listed conditions above and below. Reason homebound: unsteady gait / fall risk, leg weakness, pain with ambulation, pain with transfers, poor balance / fall risk and unable to drive Homebound supporting statement: Pt. is considered homebound due to recent surgery. Unable to drive, poor balance, poor gait mechanics. Certification: Based on the above findings, I certify that this patient is confined to the home and needs intermittent nursing home care, physical therapy and/or speech therapy, or continues to need occupational therapy. The patient is under my care, and I have initiated the establishment of the plan of care. The patient will be followed by a physician who will periodically review the plan of care.
--- NOTE | 2021-08-13 10:14 | W.PM.OPN ---
Operative Note Operative Note Date of Service: 07/02/21 Narrative: Pre-op diagnosis: left hip OA Post-op diagnosis: same Procedure: Left RODO Implants: Powersite trident2 # 50; accolade 2 #3 132deg with +4 32 ceramic and 10 deg post lip liner Surgeon: Randal Clark MD Anesthesia: GETA and local Was an Director Of Marketing Communications used for this Procedure?: Yes Director Of Marketing Communications: Alyssa Muñoz Estimated blood loss (mL): 200 IV fluids (mL): 1,100 Pathology: other Condition: stable Disposition: PACU Procedure in detail: Patient was brought into the operating room and placed in the right lateral decubitus position. All bony prominences were well padded and the limb was prepped and draped in standard sterile fashion. Time-out was called to identify proper site procedure proper surgeon IV antibiotics and 1 g of transaxemic acid were administered. I began by making a curvilinear incision over the posterolateral aspect of the greater trochanter. Dissection was taken down to the tensor fascia which was incised in line with the incision and a Charnley retractor was placed. Cautery was used to maintain hemostasis. The hip was internally rotated and the external rotators were identified. The vessels were cauterized and a full-thickness capsular/external rotator layer was developed starting just proximal to the piriformis. This layer was tagged and a dull Hohmann retractor was placed underneath the neck in the hip was dislocated. The head was eburnated.. A neck cut was made 1 cm proximal to the lesser trochanter and the head and neck were removed and measured on the back table. I then placed my anterior-posterior acetabular retractors and performed a labrectomy. The cup was also arthritic. I then started with a4 4 and sequentially reamed up to a size 52 and impacted a 52 at approximately 45 degrees of inclination and 25 degrees of version. I then placed a 10 deg lipped liner and turned my attention to the femur. I identified the piriformis insertion and used this as a starting point for my jaswant cutter. The medius tendon was protected with a Hibs retractor. I then used a Charnley awl to identify the canal and a curved curette to remove the lateral bone. I irrigated copiously. I then sequentially broached in the patient's natural version to a size #2 and placed my trial implants. Using a trail head I took the hip through range of motion. I was very satisfied with the stability and length. Therefore I removed all instrumentation and copiously irrigated. I placed my final femoral implant and again took the hip through range of motion with a variety of head leangthe. I selected a +4 and this was impacted in place. I was satisfied with the stability and length. I then irrigated for 3 minutes with iodine and placed 1 g of local tranaxemic acid. I then performed a capsular closure with 2.0 fiberwire, Morelia's fascia with 0 Vicryl, subcuticular with 2-0 Vicryl and the skin with geri. Patient was placed into a sterile dressing. Radiographs were obtained at the completion of the case and I was satisfied with the component position. Patient was extubated brought to the recovery room in stable condition.
== END 2021-07-04 12:40 | disposition home health service (06) | DRG 324 ==
LOC: HO.SSSA 10:01 → HO.S3 15:29
PROVIDERS: Physician Assistant; Admitting Provider Orthopaedic Surgery; PCP Nurse Practitioner Family; Visit Provider Orthopaedic Surgery
PROC: 0SRB0JA Replacement of Left Hip Joint with Synthetic Substitute, Uncemented, Open Approach (ICD-10-PCS; CPT 27130; principal; 2021-07-02 11:10)
DX: M16.12 Unilateral primary osteoarthritis, left hip (principal); E78.1 Pure hyperglyceridemia; F32.9 Major depressive disorder, single episode, unspecified; I10 Essential (primary) hypertension; Z87.891 Personal history of nicotine dependence; Z20.822 Contact with and (suspected) exposure to COVID-19; Z79.899 Other long term (current) drug therapy
CPT/HCPCS: 36415; 72170; 80048; 85025; 86850; 86900; 86901; 86923; 87635; 87640; 87641; 88304; 88311; 94660; 97110; 97116; 97162; 97166; 97535; C1776; J0131; J0690; J1170; J2370; J2405; J3010; P9016

== ENCOUNTER → 2021-07-17 13:15 | Outpatient (BNVA) | payer OTHER, SELFPAY | PROVIDERS: PCP Nurse Practitioner Family; Visit Provider Physician Assistant ==

== ENCOUNTER → 2021-08-14 10:43 | Outpatient (BNVA) | payer OTHER, SELFPAY | PROVIDERS: Visit Provider Orthopaedic Surgery ==

== ENCOUNTER 2021-09-25 09:02 | Outpatient (REF) | payer OTHER, SELFPAY ==
--- NOTE | ~2021-09-25 | XR_ITS ---
EXAMINATION: XR PELVIS XR HIP, LEFT CLINICAL INFORMATION: Left hip pain. COMPARISON: Radiograph pelvis 07/02/2021, 04/03/2021 TECHNIQUE: 2 AP views of the pelvis are obtained along with crosstable lateral view left hip. FINDINGS: There are bilateral hip replacements. The hardware is intact. There is no fracture or dislocation or destructive process. No osteolysis. Again, there are degenerative changes lower lumbar spine with disc narrowing and vertebral spurring. The SI joints and pubis are unremarkable. There is whiskering from the lateral iliac crests again seen and spurring from the bilateral greater trochanters. XR/XR hip LT 1V IMPRESSION: 1. Bilateral hip replacements. Hardware intact. No fracture, dislocation, or osteolysis. 2. Degenerative changes lumbar spine.
--- NOTE | ~2021-09-25 | XR_ITS ---
EXAMINATION: XR PELVIS XR HIP, LEFT CLINICAL INFORMATION: Left hip pain. COMPARISON: Radiograph pelvis 07/02/2021, 04/03/2021 TECHNIQUE: 2 AP views of the pelvis are obtained along with crosstable lateral view left hip. FINDINGS: There are bilateral hip replacements. The hardware is intact. There is no fracture or dislocation or destructive process. No osteolysis. Again, there are degenerative changes lower lumbar spine with disc narrowing and vertebral spurring. The SI joints and pubis are unremarkable. There is whiskering from the lateral iliac crests again seen and spurring from the bilateral greater trochanters. XR/XR pelvis 1-2V IMPRESSION: 1. Bilateral hip replacements. Hardware intact. No fracture, dislocation, or osteolysis. 2. Degenerative changes lumbar spine.
== END 2021-09-25 09:03 | disposition home or self-care (01) ==
LOC: HO.HOSX 09:02
PROVIDERS: Visit Provider Orthopaedic Surgery
DX: Z47.1 Aftercare following joint replacement surgery (principal); Z96.642 Presence of left artificial hip joint
CPT/HCPCS: 72170; 73501

== ENCOUNTER → 2021-10-09 12:28 | Outpatient (BNVA) | payer OTHER, SELFPAY | PROVIDERS: Visit Provider Orthopaedic Surgery ==

== ENCOUNTER → 2022-03-06 11:39 | Outpatient (BNVA) | payer OTHER, SELFPAY | PROVIDERS: PCP Internal Medicine; Visit Provider Physician Assistant | DX: S83.241D Other tear of medial meniscus, current injury, right knee, subsequent encounter (principal) | CPT/HCPCS: 99212 ==

== ENCOUNTER 2022-03-11 06:00 | Day surgery (SDC) | payer OTHER, SELFPAY ==
--- NOTE | 2022-03-05 13:59 | HO.ANESPROP2 ---
Documented by User: Selin Li NP 03/10/22 10:04 HPI - Anesthesia Eval Consult details Narrative: 56yo F for Knee Arthroscopy s/p total hip 06/2021 - during Tele-PAT, pt states she required narcan 3 times post-op, but after review of records no doses of narcan admin'd. She required bipap in PACU, but was transferred [facility] Active Problems Active Problems: All Active Problems (Updated 03/05/22 @ 09:23 by Kelsi Rodriguez RN) Internal derangement of right knee (Acute ~03/27/21) Tear of medial meniscus of right knee (Acute) Patellofemoral arthritis of right knee (Acute) Osteoarthritis of left hip (Acute) Status post total hip replacement, left (Acute) Past Medical History Medical History Anemia Anxiety disorder Arthritis COVID-19 vaccine series completed History of torn meniscus of right knee HTN (hypertension) Hypertriglyceridemia Major depression Morbid obesity Family History Family history of problems with anesthesia: No Surgical History Surgical History History of bladder suspension procedure History of endometrial ablation History of tonsillectomy History of total left hip arthroplasty History of total right hip arthroplasty Hx of section Hx of cholecystectomy History of Problems with Anesthesia: No Social History Social History Are you a primary inpatient care manager rn to a significant other at home: No Do you presently have visiting nurse or other home services: No Alcohol intake: never Patient Tobacco Use Status: Former Tobacco user Quit Date: ~ 30 yrs ago Tobacco use type: Cigarette Second Hand Smoke Exposure: No Current occupational status: employed Current occupation: teacher, right handed Meds Allergies Allergy/AdvReac Type Severity Reaction Status Date / Time No Known Allergies Allergy Verified 03/06/22 11:51 [No Known Allergies*] Home Medications Medication Instructions Recorded Confirmed Last Taken Type fluoxetine 40 mg capsule 40 mg PO DAILY 04/03/21 03/05/22 07/02/21 08:45 History Exam Exam Date and Time: March 05, 2022 1359 Assessment and Plan Assessment Anesthesia Assessment: Chart Reviewed Final Anesthetic Review Family History of Problems with Anesthesia: No History of Problems with Anesthesia: No Documented by User: Andry De Jesus MD 03/11/22 17:25 HPI - Anesthesia Eval Consult details Narrative: 56yo F for Knee Arthroscopy right s/p total hip 06/2021 - during Tele-PAT, pt states she required narcan 3 times post-op . She required bipap in PACU, but was transferred [facility] Past Medical History Medical History Anemia Anxiety disorder Arthritis COVID-19 vaccine series completed History of torn meniscus of right knee HTN (hypertension) Hypertriglyceridemia Major depression Morbid obesity Functional capacity: independent ambulation Surgical History Surgical History History of bladder suspension procedure History of endometrial ablation History of tonsillectomy History of total left hip arthroplasty History of total right hip arthroplasty Hx of section Hx of cholecystectomy Social History Social History Are you a primary inpatient care manager rn to a significant other at home: No Do you presently have visiting nurse or other home services: No Alcohol intake: never Patient Tobacco Use Status: Former Tobacco user Quit Date: ~ 30 yrs ago Tobacco use type: Cigarette Second Hand Smoke Exposure: No Current occupational status: employed Current occupation: teacher, right handed Meds Allergies Allergy/AdvReac Type Severity Reaction Status Date / Time No Known Allergies Allergy Verified 03/06/22 11:51 [No Known Allergies*] Home Medications Medication Instructions Recorded Confirmed Last Taken Type fluoxetine 40 mg capsule 40 mg PO DAILY 04/03/21 03/05/22 07/02/21 08:45 History Exam Airway Mallampati Class: II TM Dist: >3cm Neck ROM: Full Loose/Missing/Broken Teeth: Yes (Chipped ) Heart: S1, S2 Lungs: b/l breath sounds Assessment and Plan Assessment Anesthesia Assessment: Anesthesia Plan Discussed Final Anesthetic Review NPO: Yes ASA Class: III Final Preanesthetic Review: Meds/Allgs Chart Reviewed, Consent Obtained/Reviewed and Anes Risks/Benef Reviewed Patient Risk: Intermediate Procedure Risk: Intermediate Anesthetic Plan Anesthetic Plan: GA Disposition: Standard PACU
[2022-03-11] VITALS (8 sets, daily range): BP systolic 163–178; BP diastolic 68–92; PULSE 54–78; RESP 12–18; TEMP 36–36.4; O2SAT 95–100; BMI 41.4
[2022-03-11] MEDS: Lactated Ringers 1,000 ML 100 ML IVCONT (06:15)
--- NOTE | 2022-03-11 08:33 | PM.OP ---
Brief Operative Note Date of Service: 03/11/22 Pre-op diagnosis: right knee MMT Post-op diagnosis: other (1) MMT 2) PF OA 3) Medial plica) Procedure: Right knee partial medial meniscectomy and chondroplasty with medial plica resection Surgeon: Randal Clark MD Anesthesia: GETA and local Was an Erosion Control Specialist used for this Procedure?: No Estimated blood loss (mL): 5 Tourniquet time (min): 24 IV fluids (mL): 500 Pathology: other Condition: stable Disposition: PACU
--- NOTE | 2022-03-11 08:36 | W.PM.OPN ---
Operative Note Operative Note Date of Service: 03/11/22 Narrative: Pre-op diagnosis: right knee MMT Post-op diagnosis: other (1) MMT 2) PF OA 3) Medial plica) Procedure: Right knee partial medial meniscectomy and chondroplasty with medial plica resection Surgeon: Randal Clark MD Anesthesia: GETA and local Was an Regulatory Affairs Specialist used for this Procedure?: No Estimated blood loss (mL): 5 Tourniquet time (min): 24 IV fluids (mL): 500 Pathology: other Condition: stable Disposition: PACU Procedure in detail: The patient was brought to the operating room placed supine on the arthroscopic table and prepped and draped in standard sterile fashion. A time-out was called to identify proper site proper procedure proper surgeon and IV antibiotics per weight were administered. I began by exsanguinating the limb and insufflating tourniquet to 300 mm Hg. Then made a standard anterolateral stab incision. The knee was insufflated with water and 30 degree arthroscope was placed. There was grade 2/3 changes of the distal pole of the patella and fissuring with G 2 changes of the trochlea. There was an abrading medial plica. I descended into the medial compartment where I made my medial portal under direct visualization. There was no obvious meniscal tearing. There was a partial tear at the root but the root was intact and stable upon probing. I debrided the torn portions but root repair was not indicated. There were G 1 fribrillations of the medial compartment cartilage surfaces. I debrided the loose chondral fragments of the medial compartment and the PF joint. I debrided the medial plica. I then removed all instrumentation and closed the portals with skin glue. 25 mL of 2% Marcaine with epinephrine was injected into the joint and the surrounding soft tissues. Patient was then placed in sterile dressing extubated brought recovery room stable condition. There were no known complications.
[2022-03-11] MEDS: fentaNYL citrate/PF 100 MCG/2 ML VIAL 25 MCG IVPUSH (08:50)
== END 2022-03-11 10:15 | disposition home or self-care (01) ==
PROVIDERS: PCP Internal Medicine; Visit Provider Orthopaedic Surgery
PROC: (CPT 29870; principal; 2022-03-11 07:30)
DX: M22.2X1 Patellofemoral disorders, right knee (principal); M67.51 Plica syndrome, right knee; I10 Essential (primary) hypertension; D64.9 Anemia, unspecified; F32.9 Major depressive disorder, single episode, unspecified; Z87.891 Personal history of nicotine dependence; E66.01 Morbid (severe) obesity due to excess calories; Z68.41 Body mass index [BMI] 40.0-44.9, adult
CPT/HCPCS: 29877; J0131; J0171; J0690; J1100; J2250; J2405; J3010

== ENCOUNTER → 2022-03-16 10:47 | Outpatient (BNVA) | payer OTHER, SELFPAY | PROVIDERS: PCP Internal Medicine; Visit Provider Physician Assistant | DX: S83.241D Other tear of medial meniscus, current injury, right knee, subsequent encounter (principal) | CPT/HCPCS: 99212 ==

== ENCOUNTER → 2022-04-14 12:38 | Outpatient (BNVA) | payer OTHER, SELFPAY | PROVIDERS: PCP Internal Medicine; Visit Provider Physician Assistant | DX: S83.241D Other tear of medial meniscus, current injury, right knee, subsequent encounter (principal) ==

== ENCOUNTER 2022-05-13 16:00 | Outpatient (RCR) | payer OTHER, SELFPAY ==
--- NOTE | 2022-03-16 11:33 | MHC.PT.EP ---
[facility] [place] [facility] [place] [facility] [place] [facility] [address] Yonatan Joyce [address] [phone] F: [phone] F: [phone] F: [phone] F: [phone] Physical Therapy Plan of Care Date of Evaluation: Date of Surgery: 03/11/22 Diagnosis: RIGHT PARTIAL MEDIAL MENISECTOMY Assessment: CHRISTIANE STERLING PRESENTS POD 5 FOR ORTHOPEDIC FOLLOW UP AND PT EVALUATION. UPON EXAM SHE DEMONSTRATES THE EXPECTED IMPAIRMENTS OF DECREASED ROM, DECREASED STRENGTH, ALTERED POSTURE AND POSITIONING,ALTERED GAIT AND BALANCE, AND INCREASED PAIN AND EDEMA. FUNCTIONAL LIMITATIONS INCLUDE DECREASED ABILITY TO PERFORM HOMEMAKING AND SELF-CARE TASKS, DECREASED ABILITY TO PERFORM WALKING, RUNNING, JUMPING AND SQUATTING, INABILITY TO DRIVE AND PERFORM WORK TASKS, DECREASED PARTICIPATION IN COMMUNITY AND RECREATIONAL ACTIVITIES AND DISRUPTED SLEEP. THE Pt IS A GOOD CANDIDATE FOR SKILLED PT DUE TO AGE, POTENTIAL REMEDIATION OF IMPAIRMENTS, TYPICAL DISEASE/CONDITION PROGRESSION AND PROGNOSIS, COMORBIDITIES, AND MOTIVATION. PT WOULD BENEFIT FROM TAILORED PROGRAM OF THERAPEUTIC ACTIVITIES, FUNCTIONAL TRAINING, GAIT TRAINING, POSTURAL EDUCATION, NEUROMUSCULAR RE-EDUCATION, AND MODALITIES NEEDED. Frequency and Duration: The patient will be seen 2 X WEEK FOR 8 WEEKS Short Term Goals: INITIATE HEP AND PROMOTE SELF MANAGEMENT OF SYMPTOMS IN 2 VISITS Coroner Goals: TO DEMONSTRATE FULL KNEE ROM, EQUAL ELADIA TO DEMONSTRATE FULL LE STRENGTH, EQUAL ELADIA TO ASCEND AND DESCEND STAIRS WITH RECIPROCAL GAIT WITHOUT PAIN GREATER THAN 2/10 TO AMBULATE AD NADER ON LEVEL AND UNEVEN SURFACES FOR FITNESS WITHOUT PAIN GREATER THAN 2/10 Treatment Plan: Modalities to reduce pain, spasms and effusion. Manual therapy to restore motion and function. Therapeutic exercise to improve strength and flexibility. Neuromuscular re-education for posture and balance. Therapeutic activities to return to functional activities of daily living. Electronically signed by: JANET CORRIGAN PT, DPT Please sign and return to therapist. Thank you for your referral.
--- NOTE | 2022-05-13 17:26 | MHC.PT.DC ---
[facility] [place] Office [place] Office [place] Office [address] Yonatan Joyce [address] [phone] F: [phone] F: [phone] F: [phone] F: [phone] Physical Therapy Discharge Report Diagnosis: RIGHT PARTIAL MEDIAL MENISECTOMY Date of Surgery: 03/11/22 Date of Evaluation: 03/16/22 Date of Discharge: 05/13/22 Treatments to Date: 11 Cancellations to Date: 0 No Shows to Date: 0 Discharge Status: Achieved Goals Improved Function Independent with HEP Discharge Summary: Pt has made excellent progress since SOC. She has met her STGs and made good progress toward her LTGs. She has had an overall decrease in pain. She has improved ROM and strength throughout R knee to WFL. She is I with HEP. Pt is being D/C from skilled PT at this time. Provided pt with printed, updated copy of HEP and pt verbalized understanding. Pt reports no further questions or concerns for PT at this time. Electronically signed by: Stacey Webster, PT, DPT Please sign and return to therapist. Thank you for your referral.
== END 2022-05-13 17:26 | disposition home or self-care (01) ==
LOC: HO.PT 16:00
PROVIDERS: Visit Provider Physician Assistant
DX: S83.241D Other tear of medial meniscus, current injury, right knee, subsequent encounter (principal)
CPT/HCPCS: 97110; 97112; 97140; 97161; 97530

== ENCOUNTER → 2022-07-24 13:11 | Outpatient (BNVA) | payer OTHER, SELFPAY | PROVIDERS: Visit Provider Orthopaedic Surgery | DX: M17.11 Unilateral primary osteoarthritis, right knee (principal) | CPT/HCPCS: 99212 ==

== ENCOUNTER → 2022-08-10 10:31 | Outpatient (BNVA) | payer OTHER, SELFPAY | PROVIDERS: Visit Provider Orthopaedic Surgery | DX: M17.11 Unilateral primary osteoarthritis, right knee (principal) | CPT/HCPCS: 20610; 99212; J1100 ==

== ENCOUNTER → 2022-09-04 11:43 | Outpatient (BNVA) | payer OTHER, SELFPAY | PROVIDERS: Visit Provider Orthopaedic Surgery | DX: M17.11 Unilateral primary osteoarthritis, right knee (principal); M25.461 Effusion, right knee; Z96.651 Presence of right artificial knee joint | CPT/HCPCS: 99212 ==

== ENCOUNTER 2022-11-11 11:00 | Outpatient (RCR) | payer OTHER, SELFPAY ==
--- NOTE | 2022-08-31 12:58 | MHC.PT.EP ---
[facility] [place] Office [place] Office [place] Office [address] Car[address] Joyce [address] [phone] F: [phone] F: [phone] F: [phone] F: [phone] Physical Therapy Plan of Care Date of Evaluation: Date of Surgery: 03/11/2022 Diagnosis: osteoarthritis of R knee, s/p arthroscopy 03/11/22 Assessment: Pt is a pleasant 56 y.o female who presents to PT after an acute flare up of R knee pain after R knee arthroscopy for partial medial meniscectomy and chondroplasty with medial plica resection 03/11/22. She presents with muscle imbalances in quads, glutes and hamstrings resulting in increased stress to medial knee compartment. She has limited ROM, weakness, impaired gait and functional mobility with bending, squatting, kneeling and use of stairs which are all required functions of her job. She will benefit from skilled PT to restore muscle imbalances and progress towards returning to work. Frequency and Duration: The patient will be seen 2x/week for 4 weeks Short Term Goals: 2 weeks Patient presents without swelling in R knee with mid patellar measurement 48cm. Patient presents with increased R knee extension AROM 0 degrees to restore normalized gait pattern. [employer] Manager Transportation Goals: 4 weeks Patient presents with increased R knee flexion 120 degrees to be able to perform squats. Patient presents with increased R knee extension 4+/5 to be able to perform reciprocal stairs. Treatment Plan: Modalities to reduce pain, spasms and effusion. Manual therapy to restore motion and function. Therapeutic exercise to improve strength and flexibility. Neuromuscular re-education for posture and balance. Therapeutic activities to return to functional activities of daily living. Electronically signed by: Feliciano Frazier, PT, DPT Please sign and return to therapist. Thank you for your referral.
--- NOTE | 2022-11-17 11:02 | MHC.PT.DC ---
[facility] [place] Office [place] Office [place] Office [address] Yonatan Joyce [address] [phone] F: [phone] F: [phone] F: [phone] F: [phone] Physical Therapy Discharge Report Diagnosis: osteoarthritis of R knee, s/p arthroscopy 03/11/22 Date of Surgery: 03/11/2022 Date of Evaluation: 08/31/22 Date of Discharge: 11/17/22 Treatments to Date: 11 Cancellations to Date: 4 No Shows to Date: 0 Discharge Status: Recommend MD Follow-up Discharge Summary: Per assessment on visit 11/13/22: The patient overall has progressed regarding her pain severity and frequency. She still presents with persistent, chronic pain with higher level tasks including squatting and lunging. Her plan of care was recently interrupted by a month long absence due to COVID-19 infection. Her insurance authorization ends on 11/13/22. Prior to absence she had plateaued in her tolerance for exercise and activity. She was reporting flare-up of pain post-therapy that would last approximately 24 hours. She was unable to tolerate progression of weight bearing exercise despite therapeutic exercise, therapeutic activity, neuromuscular re-education, and modalities such as iontophoresis. She is independent with her home exercise program. Given the previous statements, this therapist cannot recommend anymore PT intervention at this time. She will continue her home exercise program independently on her own. Electronically signed by: Feliciano Frazier, PT, DPT Please sign and return to therapist. Thank you for your referral.
== END 2022-11-17 11:02 | disposition home or self-care (01) ==
LOC: HO.PT 11:00
PROVIDERS: Visit Provider Orthopaedic Surgery
DX: M17.11 Unilateral primary osteoarthritis, right knee (principal)
CPT/HCPCS: 97033; 97035; 97110; 97140; 97161; 97164; 97530

== ENCOUNTER → 2022-11-19 12:42 | Outpatient (BNVA) | payer OTHER, SELFPAY | PROVIDERS: Visit Provider Orthopaedic Surgery | DX: M17.11 Unilateral primary osteoarthritis, right knee (principal) | CPT/HCPCS: 99212 ==